=== PATIENT | female | born 1965 | race Caucasian/White ===

== ENCOUNTER → 2017-11-11 | Outpatient (CLI) | payer MEDICARE, BC ==
[~2017-11-11] MED LIST: ASPI-875 PO; CHOL40002 PO; ESTR42.52 VG; FLUT16SP22; IBUP-30 PO; MAGN400C PO; MTP25TSR PO; OMEG-12 PO; PNT40TEC PO
== END ==
LOC: RAD 12:45
PROVIDERS: ATTEND Family Medicine
DX: Z12.31 Encounter for screening mammogram for malignant neoplasm of breast (principal)
CPT/HCPCS: 77067

== ENCOUNTER → 2018-03-23 | Outpatient (CLI) | payer MEDICARE, BC ==
[2018-03-23 12:18] LABS: BASOPHILS % (AUTO) 0 % (0-10); EOSINOPHILS % (AUTO) 1 % (0-10); HEMATOCRIT 40 % (35-52); HEMOGLOBIN 14.2 G/DL (11.5-16.0); LYMPHOCYTES # (AUTO) 1.6 X 10^3 (1.0-4.0); LYMPHOCYTES % (AUTO) 29 % (12-44); MEAN CORPUSCULAR HEMOGLOBIN 34 PG (25-34); MEAN CORPUSCULAR HGB CONC 35 G/DL (32-36); MEAN CORPUSCULAR VOLUME 97 FL (80-99); MEAN PLATELET VOLUME 9.7 FL (7.4-10.4); MONOCYTES # (AUTO) 0.4 X 10^3 (0.0-1.0); MONOCYTES % (AUTO) 8 % (0-12); NEUTROPHILS # (AUTO) 3.3 X 10^3 (1.8-7.8); NEUTROPHILS % (AUTO) 62 % (42-75); PLATELET COUNT 262 10^3/uL (130-400); RED BLOOD COUNT 4.17 10^6/uL (4.35-5.85); RED CELL DISTRIBUTION WIDTH 12.1 % (10.0-14.5); WHITE BLOOD COUNT 5.3 10^3/uL (4.3-11.0)
[2018-03-23 12:43] LABS: ALANINE AMINOTRANSFERASE 43 U/L (0-55); ALBUMIN 4.8 GM/DL (3.2-4.5); ALKALINE PHOSPHATASE 57 U/L (40-136); BILIRUBIN,TOTAL 0.4 MG/DL (0.1-1.0); BUN/CREATININE RATIO 16; CALCIUM 9.7 MG/DL (8.5-10.1); CARBON DIOXIDE 25 MMOL/L (21-32); CHLORIDE 101 MMOL/L (98-107); CREATININE SERUM 0.63 MG/DL (0.60-1.30); GFR ESTIMATED > 60; GLUCOSE 94 MG/DL (70-105); MAGNESIUM 2.2 MG/DL (1.8-2.4); POTASSIUM 3.9 MMOL/L (3.6-5.0); SODIUM 135 MMOL/L (135-145); TOTAL PROTEIN 7.7 GM/DL (6.4-8.2); URIC ACID 3.5 MG/DL (2.6-7.2)
[2018-03-23 12:51] LABS: ERYTHROCYTE SEDIMENTATION RATE 8 MM/HR (0-30)
[2018-03-23 13:04] LABS: FREE T4 (FREE THYROXINE) 1.17 NG/DL (0.70-1.48)
== END ==
LOC: LAB 11:50
PROVIDERS: ATTEND Family Medicine
DX: R53.83 Other fatigue (principal); E55.9 Vitamin D deficiency, unspecified; R42 Dizziness and giddiness; E83.42 Hypomagnesemia; M25.50 Pain in unspecified joint
CPT/HCPCS: 36415; 80053; 82306; 83735; 84439; 84443; 84550; 85025; 85652; 86141

== ENCOUNTER → 2018-05-30 | Outpatient (CLI) | payer MEDICARE, BC ==
--- NOTE | 2018-05-30 13:04 | Diagnostic Imaging Report ---
INDICATION: Cough. TIME OF EXAM: 10:00 a.m. Comparison is made with prior chest from 05/18/2016. FINDINGS: The heart size is normal. The pulmonary vascularity is unremarkable. The lungs are clear. No infiltrate, effusion or pneumothorax is detected. IMPRESSION: No acute cardiopulmonary process is detected. Dictated by: Dictated on workstation # [id number]
== END ==
LOC: RAD 09:30
PROVIDERS: ATTEND Family Medicine
DX: R06.00 Dyspnea, unspecified (principal); R05 Cough
CPT/HCPCS: 71046

== ENCOUNTER → 2018-07-25 | Outpatient (CLI) | payer MEDICARE, BC ==
--- NOTE | 2018-07-25 14:42 | Diagnostic Imaging Report ---
PROCEDURE: CT chest, abdomen, and pelvis without contrast. TECHNIQUE: Multiple contiguous axial images were obtained through the chest, abdomen, and pelvis without the use of intravenous contrast. INDICATION: Difficulty breathing as well as right flank pain and right upper quadrant pain. CT CHEST: No axillary lymphadenopathy is seen. Hilar and mediastinal evaluation is limited without intravenous contrast but no significant abnormality is detected. No pericardial or pleural fluid is identified. No pulmonary infiltrates, nodules or masses are seen. Unremarkable noncontrast CT of the chest. CT ABDOMEN AND PELVIS: No discrete liver mass is identified. The gallbladder is surgically absent. No biliary duct dilatation is seen. The pancreas and spleen are unremarkable. No adrenal mass is detected. No renal calculi or hydronephrosis is identified. The small and large bowel loops are normal caliber. No obstruction is seen. The appendix is visualized and unremarkable. Moderate stool is present throughout the colon. There is no ascites. The bladder is unremarkable. No abdominal or pelvic lymphadenopathy is seen. IMPRESSION: Unremarkable noncontrast CT of the abdomen and pelvis apart from a moderate stool throughout colon. No acute features detected. Dictated by: Dictated on workstation # [id number]
== END ==
LOC: RAD 14:05
PROVIDERS: ATTEND Family Medicine
DX: R10.11 Right upper quadrant pain (principal); R10.13 Epigastric pain; R06.00 Dyspnea, unspecified; Z90.49 Acquired absence of other specified parts of digestive tract
CPT/HCPCS: 71250; 74176

== ENCOUNTER → 2019-08-06 | Outpatient (CLI) | payer MEDICARE, BC ==
[2019-08-06 15:55] LABS: ALANINE AMINOTRANSFERASE 58 U/L (0-55); ALBUMIN 4.8 GM/DL (3.2-4.5); ALKALINE PHOSPHATASE 78 U/L (40-136); BILIRUBIN,TOTAL 0.2 MG/DL (0.1-1.0); BUN/CREATININE RATIO 16; CALCIUM 9.8 MG/DL (8.5-10.1); CARBON DIOXIDE 21 MMOL/L (21-32); CHLORIDE 102 MMOL/L (98-107); CREATININE SERUM 0.73 MG/DL (0.60-1.30); GFR ESTIMATED > 60; GLUCOSE 98 MG/DL (70-105); SODIUM 138 MMOL/L (135-145); TOTAL PROTEIN 7.7 GM/DL (6.4-8.2)
--- NOTE | 2019-08-06 16:31 | Diagnostic Imaging Report ---
INDICATION: Cough for two weeks. TIME OF EXAM: 3:45 p.m. COMPARISON: Correlation is made with prior chest from 05/30/2018. FINDINGS: The heart size is normal. The pulmonary vascularity is unremarkable. The lungs are clear. No infiltrate, effusion or pneumothorax is detected. IMPRESSION: No acute cardiopulmonary process is detected. Dictated by: Dictated on workstation # [id number]
== END ==
LOC: RAD 15:06
PROVIDERS: ATTEND Family Medicine
DX: E87.1 Hypo-osmolality and hyponatremia (principal); R05 Cough
CPT/HCPCS: 36415; 71046; 80053

== ENCOUNTER → 2020-02-19 | Outpatient (CLI) | payer MEDICARE, BC ==
[2020-02-19 08:44] LABS: BASOPHILS % (AUTO) 0 % (0-10); EOSINOPHILS % (AUTO) 1 % (0-10); HEMATOCRIT 39 % (35-52); HEMOGLOBIN 13.1 G/DL (11.5-16.0); LYMPHOCYTES # (AUTO) 1.5 X 10^3 (1.0-4.0); LYMPHOCYTES % (AUTO) 34 % (12-44); MEAN CORPUSCULAR HEMOGLOBIN 33 PG (25-34); MEAN CORPUSCULAR HGB CONC 34 G/DL (32-36); MEAN CORPUSCULAR VOLUME 98 FL (80-99); MEAN PLATELET VOLUME 9.2 FL (7.4-10.4); MONOCYTES # (AUTO) 0.5 X 10^3 (0.0-1.0); MONOCYTES % (AUTO) 10 % (0-12); NEUTROPHILS # (AUTO) 2.4 X 10^3 (1.8-7.8); NEUTROPHILS % (AUTO) 55 % (42-75); PLATELET COUNT 236 10^3/uL (130-400); WHITE BLOOD COUNT 4.4 10^3/uL (4.3-11.0)
[2020-02-19 09:07] LABS: ALANINE AMINOTRANSFERASE 33 U/L (0-55); ALBUMIN 4.5 GM/DL (3.2-4.5); ALKALINE PHOSPHATASE 50 U/L (40-136); BILIRUBIN,TOTAL 0.4 MG/DL (0.1-1.0); BUN/CREATININE RATIO 12; CALCIUM 9.1 MG/DL (8.5-10.1); CARBON DIOXIDE 24 MMOL/L (21-32); CHLORIDE 102 MMOL/L (98-107); CHOLESTEROL 239 MG/DL (< 200); GFR ESTIMATED > 60; GLUCOSE 94 MG/DL (70-105); HDL CHOLESTEROL 79 MG/DL (40-60); POTASSIUM 4.1 MMOL/L (3.6-5.0); SODIUM 136 MMOL/L (135-145); TOTAL PROTEIN 6.9 GM/DL (6.4-8.2); TRIGLYCERIDES 90 MG/DL (<150); VLDL CHOLESTEROL 18 MG/DL (5-40)
[2020-02-19 09:29] LABS: FREE T4 (FREE THYROXINE) 1.06 NG/DL (0.70-1.48)
== END ==
LOC: LAB 08:16
PROVIDERS: ATTEND Family Medicine
DX: Z00.01 Encounter for general adult medical examination with abnormal findings (principal); R79.0 Abnormal level of blood mineral
CPT/HCPCS: 36415; 80053; 80061; 82728; 83540; 84439; 84443; 85025

== ENCOUNTER → 2021-01-26 | Outpatient (CLI) | payer MEDICARE, BC ==
[~2021-01-26] MED LIST changes: +CATHETER FLUSH 10 ML SYR IV PRN; +HOLD METFORMIN - RECEIVED CONTRAST 20 ML VIAL IV SCH; +IOHEXOL 350 MG/ML 100 ML (OMNIPAQUE 350) VIAL IV ONE; +NS 100 ML (IVPB) BAG IV ONE
[2021-01-26 15:38] LABS: ALBUMIN 4.8 GM/DL (3.2-4.5); CHLORIDE 101 MMOL/L (98-107); SODIUM 139 MMOL/L (135-145)
[2021-01-26 15:39] LABS: CALCIUM 9.8 MG/DL (8.5-10.1)
[2021-01-26 15:40] LABS: GLUCOSE 97 MG/DL (70-105); TOTAL PROTEIN 7.9 GM/DL (6.4-8.2)
[2021-01-26 15:41] LABS: CARBON DIOXIDE 25 MMOL/L (21-32)
[2021-01-26 15:42] LABS: BILIRUBIN,TOTAL 0.3 MG/DL (0.1-1.0)
[2021-01-26 15:44] LABS: ALKALINE PHOSPHATASE 62 U/L (40-136); CREATININE SERUM 0.66 MG/DL (0.60-1.30); GFR ESTIMATED > 60
[2021-01-26 15:45] LABS: BUN/CREATININE RATIO 11
[2021-01-26 15:47] LABS: ALANINE AMINOTRANSFERASE 61 U/L (0-55)
--- NOTE | 2021-01-26 16:56 | Diagnostic Imaging Report ---
EXAMINATION: CT abdomen and pelvis with and without intravenous contrast. TECHNIQUE: Precontrast acquisitions were acquired through the abdomen and pelvis. Multiple contiguous axial images were obtained through the abdomen and pelvis after the administration of intravenous contrast. All CT scans use one or more of the following dose optimizing techniques: automated exposure control, MA and/or KvP adjustment based on patient size and exam type or iterative reconstruction. HISTORY: Hematuria, right lower quadrant pain COMPARISON: CT abdomen and pelvis 07/25/2018 FINDINGS: Lung bases: Bibasilar dependent atelectasis. Solid organs: The liver is normal without focal lesion. The gallbladder is surgically absent. There is no biliary ductal dilation. Pancreas is normal. Spleen is normal. Adrenal glands are normal. The kidneys are unremarkable without visualized calculus or hydronephrosis. Bowel: The stomach and small bowel are normal without obstruction. There appears to be mild wall thickening of the sigmoid colon (series 3 image 67). There is scattered colonic diverticulosis. The appendix is normal. Peritoneum: There is no intraperitoneal free fluid or free air. No suspicious lymphadenopathy. Vasculature: Normal without aneurysm. Musculoskeletal: No suspicious osseous lesion or compression fracture. Pelvis: The uterus is surgically absent. No adnexal mass. The urinary bladder is normal. IMPRESSION: 1. Sigmoid diverticulosis with a focal area of wall thickening and inflammatory stranding seen within the sigmoid colon. These findings could represent sigmoid diverticulitis although infectious or inflammatory colitis could have a similar appearance. Recommend follow-up imaging or colonoscopy after resolution of symptoms to exclude underlying malignancy at this location. 2. No other acute abnormality in the abdomen or pelvis. Dictated by: Dictated on workstation # [id number]
== END ==
LOC: RAD 14:24
PROVIDERS: ATTEND Family Medicine
DX: K57.30 Diverticulosis of large intestine without perforation or abscess without bleeding (principal); R31.9 Hematuria, unspecified
CPT/HCPCS: 36415; 74178; 80053

== ENCOUNTER → 2021-07-27 | Outpatient (CLI) | payer MEDICARE, BC ==
[~2021-07-27] MED LIST changes: +BARIUM SUSPENSION 2.1% (VANILLA SILQ) 450 ML PO ONE; -CATHETER FLUSH 10 ML SYR IV PRN; -HOLD METFORMIN - RECEIVED CONTRAST 20 ML VIAL IV SCH; -IOHEXOL 350 MG/ML 100 ML (OMNIPAQUE 350) VIAL IV ONE; -NS 100 ML (IVPB) BAG IV ONE
--- NOTE | 2021-07-27 10:10 | Diagnostic Imaging Report ---
PROCEDURE: CT abdomen and pelvis without contrast. TECHNIQUE: Multiple contiguous axial images were obtained through the abdomen and pelvis without the use of intravenous contrast. Auto Exposure Controls were utilized during the CT exam to meet ALARA standards for radiation dose reduction. INDICATION: Left lower quadrant pain. Correlation is made with prior CT from 01/26/2021. FINDINGS: The lung bases are clear. The liver is unremarkable. The gallbladder is surgically absent. There is no biliary ductal dilatation. Pancreas and spleen are unremarkable. No adrenal mass is detected. The kidneys are unremarkable. No calculi or hydronephrosis is detected. Aorta is nonaneurysmal. Colon does show moderate stool throughout. Inflammatory changes noted on prior CT are not seen on today's exam. No acute abnormality is identified on today's study. There is no free fluid or fluid collection. There is no free air. Bladder is unremarkable. Uterus appears to be surgically absent. IMPRESSION: Moderate stool in the colon suggesting constipation. No acute feature is detected. Dictated by: Dictated on workstation # [id number]
== END ==
LOC: RAD 09:45
PROVIDERS: ATTEND Family Medicine
DX: R10.32 Left lower quadrant pain (principal)
CPT/HCPCS: 74176

== ENCOUNTER → 2021-12-11 | Outpatient (CLI) | payer MEDICARE, BC ==
[~2021-12-11] MED LIST changes: -BARIUM SUSPENSION 2.1% (VANILLA SILQ) 450 ML PO ONE
--- NOTE | 2021-12-11 11:02 | Diagnostic Imaging Report ---
INDICATION: Cough. TIME OF EXAM: 9:23 AM Correlation is made prior chest 08/06/2019. FINDING: The heart size is normal. The pulmonary vascularity is unremarkable. The lungs are clear. No infiltrate, effusion or pneumothorax is detected. IMPRESSION: No acute cardiopulmonary process is detected. Dictated by: Dictated on workstation # [id number]
== END ==
LOC: RAD 08:53
PROVIDERS: ATTEND Family Medicine
DX: J40 Bronchitis, not specified as acute or chronic (principal)
CPT/HCPCS: 71046

== ENCOUNTER → 2021-12-28 | Outpatient (CLI) | payer MEDICARE, BC ==
--- NOTE | 2021-12-28 16:30 | Diagnostic Imaging Report ---
INDICATION: Right rib pain EXAM: Two views of the right ribs FINDINGS: There are no displaced fractures. There is no effusion or pneumothorax. IMPRESSION: Negative right ribs. Dictated by: Dictated on workstation # [id number]
== END ==
LOC: RAD 15:31
PROVIDERS: ATTEND Family Medicine
DX: R07.81 Pleurodynia (principal)
CPT/HCPCS: 71100

== ENCOUNTER → 2022-09-22 | Outpatient (CLI) | payer MEDICARE, BC ==
--- NOTE | 2022-09-22 16:05 | Diagnostic Imaging Report ---
EXAMINATION: Left hand radiographs, 3 views. COMPARISON: None. HISTORY: 57-year-old female, left hand pain. Injury. FINDINGS: There is no identified acute fracture. There is no subluxation or dislocation. There is no identified radiopaque foreign body. The joint spaces are well preserved. IMPRESSION: Unremarkable radiographs of the left hand. The report was faxed to the office of Charity Hurt APRN, by [email or web address] PM. Dictated by: Dictated on workstation # [id number]
--- NOTE | 2022-09-22 16:54 | Diagnostic Imaging Report ---
EXAMINATION: Left wrist radiograph EXAM DATE: 09/22/2022 11:30 AM COMPARISON: None available. HISTORY: Left wrist pain TECHNIQUE: 3 views FINDINGS: There is no acute fracture, dislocation, or destructive osseous process. The joint spaces are normal. The soft tissues are normal. IMPRESSION: 1. No acute osseous abnormality. Dictated by: Dictated on workstation # [id number]
== END ==
LOC: RAD 10:59
PROVIDERS: ATTEND Nurse Practitioner Family
DX: S69.92XA Unspecified injury of left wrist, hand and finger(s), initial encounter (principal); W19.XXXA Unspecified fall, initial encounter
CPT/HCPCS: 73110; 73130